=== PATIENT | male | born 1975 | race African-American/Black ===

== ENCOUNTER 2019-02-25 03:52 | Inpatient (IN) | payer BC ==
[~2019-02-25] VITALS: Ht 177.8 cm; Wt 90.7 kg
[2019-02-25] MEDS ORDERED: MORPHINE SULFATE 10 MG/ML CPJ IM ONE (05:00)
[2019-02-25] MEDS ORDERED: ONDANSETRON 4MG ODT PO ONE (05:00)
[2019-02-25] MEDS ORDERED: CYCLOBENZAPRINE 10MG TABLET PO ONE ×2 (06:00→14:30)
[2019-02-25 08:12] LABS: CLARITY URINE CLEAR (CLEAR); COLOR URINE YELLOW (YELLOW); KETONES URINE NEGATIVE (NEGATIVE); LEUKOCYTE ESTERASE URINE NEGATIVE (NEGATIVE); NITRITE URINE NEGATIVE (NEGATIVE); OCCULT BLOOD URINE NEGATIVE (NEGATIVE); PROTEIN URINE NEGATIVE (NEGATIVE); SPECIFIC GRAVITY URINE 1.031 (1.005-1.030); UROBILINOGEN URINE 0.2 E.U./dL (0.2-1.0)
[2019-02-25] MEDS ORDERED: HYDROCODONE/ACETAMINOPHEN 5/325MG TABLET PO STA ×2 (10:04→11:24)
[2019-02-25] MEDS ORDERED: SODIUM CHLORIDE 0.9% 1,000 ML IV ONE (14:51)
[2019-02-25] MEDS ORDERED: MORPHINE SULFATE 4 MG/ML CPJ (NOT FOR IM USE) IV ONE (15:00)
[2019-02-25] MEDS ORDERED: ONDANSETRON HCL 4MG/2ML INJ IV ONE (15:00)
[2019-02-25 15:15] LABS: BASOPHILS % 0.6 % (0.0-2.0); EOSINOPHILS % 4.7 % (0.0-5.0); MEAN CORPUSCULAR HEMOGLOBIN 31.3 pg (28.0-32.0); MEAN CORPUSCULAR VOLUME 91.9 fL (80.0-94.0); MEAN PLATELET VOLUME 8.7 fl (7.4-10.4); MONOCYTES % 8.1 % (2.0-8.0); NEUTROPHILS % 65.6 % (40.0-76.0); PLATELET 196 x1000/uL (130-400); RED BLOOD CELL COUNT 5.11 mill/uL (4.7-6.1); RED CELL DISTRIBUTION WIDTH 13.3 % (11.6-14.6)
[2019-02-25] MEDS ORDERED: MAGNESIUM/ALUMINUM HYDROXIDE/SIMETHICONE 30ML UDC PO PRN (15:15)
[2019-02-25] MEDS ORDERED: ACETAMINOPHEN 325MG TABLET PO PRN (15:15)
[2019-02-25] MEDS ORDERED: ONDANSETRON HCL 4MG/2ML INJ IV PRN (15:15)
[2019-02-25] MEDS ORDERED: CLONIDINE 0.1MG TABLET PO PRN (15:15)
[2019-02-25] MEDS ORDERED: MORPHINE SULFATE 2 MG/ML CPJ (NOT FOR IM USE) IV PRN (15:15)
[2019-02-25 15:21] LABS: CHLORIDE 106 mEq/L (98-107)
[2019-02-25] MEDS: HYDROCODONE/ACETAMINOPHEN 10/325MG TABLET PO PRN (22:44)
[2019-02-25] MEDS: CYCLOBENZAPRINE 10MG TABLET PO PRN (22:44)
[2019-02-26] VITALS: BP_SYST 113; BP_SYST 137; BP_DIAS 72; BP_DIAS 79
[2019-02-26 04:00] VITALS: BP 118/76
[2019-02-26] MEDS: CYCLOBENZAPRINE 10MG TABLET PO PRN ×2 (05:26→14:35)
[2019-02-26] MEDS: HYDROCODONE/ACETAMINOPHEN 10/325MG TABLET PO PRN ×2 (05:27→14:35)
[2019-02-26 08:00] VITALS: BP 112/76
[2019-02-26 12:00] VITALS: BP 115/80
[2019-02-26] MEDS ORDERED: TRAM50TA94 MT (12:36)
[2019-02-26] MEDS ORDERED: CYCL25PO21 MT (12:36)
[2019-02-26 13:36] VITALS: BP 115/73
[2019-02-26 16:00] VITALS: BP 124/85
== END 2019-02-26 20:04 | disposition home or self-care (01) | DRG 552 ==
LOC: ER 03:52 → ENRESERV 19:56 → 6EST 20:00
PROVIDERS: ADMIT Hospitalist; ATTEND Hospitalist
DX: M54.5 Low back pain (principal); M41.9 Scoliosis, unspecified; G89.29 Other chronic pain
CPT/HCPCS: 36415; 71045; 72100; 72148; 81003; 96372; 97162; 99285; J2270; J2405; J7030; Q0162